=== PATIENT | female | born 1970 ===

== ENCOUNTER 2016-12-04 08:50 | Emergency (ER) | payer OTHER ==
[2016-12-04 08:55] VITALS: RESP 16
--- NOTE | 2016-12-04 09:18 | C.PDOC ---
History Of Present Illness 46 y/o female resents to ED with complaints of cough and congestion for the last few weeks. Patient denies fever, sob, chest pain, n/v/d or any other complaints at this time. Time Seen by Provider: 12/04/16 09:02 Chief Complaint (Nursing): Cough, Cold, Congestion History Per: Patient History/Exam Limitations: no limitations Onset/Duration Of Symptoms: Days Current Symptoms Are (Timing): Still Present Past Medical History Reviewed: Historical Data, Nursing Documentation, Vital Signs Vital Signs: Last Vital Signs Temp 98 F 12/04/16 10:18 Pulse 81 12/04/16 10:18 Resp 16 12/04/16 10:18 BP 110/74 12/04/16 10:18 Pulse Ox 98 12/04/16 10:18 Surgical History: No Surg Hx Family History: States: No Known Family Hx - Social History Hx Tobacco Use: Yes (light smoker) Hx Alcohol Use: No Hx Substance Use: No - Immunization History Hx Tetanus Toxoid Vaccination: No Hx Influenza Vaccination: No Hx Pneumococcal Vaccination: No Review Of Systems Except As Marked, All Systems Reviewed And Found Negative. ENT: Positive for: Nose Congestion Respiratory: Positive for: Cough Physical Exam - Physical Exam Appears: Non-toxic, No Acute Distress Skin: Normal Color, Warm, Dry, No Rash Head: Atraumatic, Normacephalic Eye(s): bilateral: Normal Inspection Oral Mucosa: Moist Throat: Normal, No Erythema Neck: Normal ROM, Supple Chest: Symmetrical Respiratory: No Rales, Rhonchi (Mildly Bilateral), No Wheezing Gastrointestinal/Abdominal: Soft, No Tenderness, No Guarding, No Rebound Neurological/Psych: Oriented x3 ED Course And Treatment O2 Sat by Pulse Oximetry: 97 (RA) Pulse Ox Interpretation: Normal Medical Decision Making Medical Decision Making: bronchitis vs pna vs influneza - Plan: * CXR * Flu test * * 900: cxr neg. pt smiling in nad. o2 sat 99%. speaking full sentneces. advise outpt f/u and return precautions Disposition - Disposition Referrals: [facility] [Outside] [facility] [Outside] [facility] [Outside] Disposition: HOME/ ROUTINE Disposition Time: 10:00 Condition: STABLE Additional Instructions: please follow up with your [email or web address].r eturn to er with wrosening symptoms or concerns. Prescriptions: Azithromycin [Zithromax] 250 mg PO DAILY #6 tab Instructions: Acute Bronchitis (ED) Forms: [facility] (Emirati) Print Language: KHMER - Clinical Impression Clinical Impression: Bronchitis - Scribe Statement The provider has reviewed the documentation as recorded by the Tito Salas All medical record entries made by the Jocelineibkb were at my direction and personally dictated by me. I have reviewed the chart and agree that the record accurately reflects my personal performance of the history, physical exam, medical decision making, and the department course for this patient. I have also personally directed, reviewed, and agree with the discharge instructions and disposition.
--- NOTE | 2016-12-04 09:52 | RAD ---
HISTORY: cough COMPARISON: No prior. TECHNIQUE: Chest PA and lateral FINDINGS: LUNGS: No active pulmonary disease. PLEURA: No significant pleural effusion identified. No pneumothorax apparent. CARDIOVASCULAR: Normal. OSSEOUS STRUCTURES: No significant abnormalities. VISUALIZED UPPER ABDOMEN: Normal. OTHER FINDINGS: None. IMPRESSION: No acute cardiopulmonary disease identified.
[2016-12-04 10:18] VITALS: BP 110/74; PULSE 81; TEMP 98
[2016-12-04 18:04] VITALS: O2SAT 97
== END 2016-12-04 10:19 | disposition home or self-care (01) ==
LOC: C.ER 08:50
DX: J40 Bronchitis, not specified as acute or chronic (principal); F17.210 Nicotine dependence, cigarettes, uncomplicated

== ENCOUNTER 2018-08-01 15:21 | Outpatient (CLI) | payer OTHER | END 2018-08-01 15:22 | disposition home or self-care (01) | LOC: C.MAMMO 15:22 | DX: Z12.31 Encounter for screening mammogram for malignant neoplasm of breast (principal) ==